=== PATIENT | female | born 1975 | race Caucasian/White ===

== ENCOUNTER 2021-02-04 10:30 | Emergency (ER) | payer OTHER ==
[~2021-02-04] VITALS: Ht 172.7 cm; Wt 90.3 kg
[2021-02-04] MEDS ORDERED: CASIRIVIMAB/IMDEVIMAB 10 ML in SODIUM CHLORIDE 0.9% 100 ML IV ONE (10:45)
[2021-02-04] MEDS ORDERED: ONDANSETRON ODT4 MG PO (11:41)
[2021-02-04] MEDS ORDERED: ONDANSETRON HCL INJ 2MG/ML 2ML 2 MG/ML VIAL IV STA (12:03)
[2021-02-04] MEDS ORDERED: ONDANSETRON HCL INJ 2MG/ML 2ML 2 MG/ML VIAL ONE (12:14)
== END 2021-02-04 13:18 | disposition home or self-care (01) ==
LOC: ER 10:34
DX: U07.1 COVID-19 (principal)
CPT/HCPCS: 99283; J2405; J7050